=== PATIENT | female | born 1985 | race Caucasian/White ===

== ENCOUNTER 2017-07-08 22:12 | Emergency (ER) | payer MEDICAID, OTHER ==
[~2017-07-08] VITALS: Ht 157.5 cm; Wt 77.2 kg
[2017-07-08 22:14] VITALS: BP 142/81
[2017-07-08] MEDS ORDERED: DEXAMETHASONE 4 MG TABLET ONE (22:50)
[2017-07-08] MEDS ORDERED: DEXAMETHASONE 4 MG TABLET PO ONE (23:00)
== END 2017-07-08 23:39 | disposition home or self-care (01) ==
LOC: ED 23:05
DX: J02.0 Streptococcal pharyngitis (principal)
CPT/HCPCS: 99283